=== PATIENT | female | born 1995 | race Hispanic/Latino ===

== ENCOUNTER 2020-07-11 10:26 | Emergency (ER) | payer SELFPAY ==
--- NOTE | 2020-07-11 10:28 | ED.PDOC ---
History of Present Illness - General Time Seen by Provider: 07/11/20 10:28 - History of Present Illness Initial Comments: 25 yo otherwise healthy female comes in with left sided flank pain. Pain started yesterday, has been constant. States she has had similar pain on the Right flank before, but unsure what it was. Denies fever, dysuria, hematuria. Has tried tylenol for pain. On menstrual cycle currently. Pain radiates to left abdomen and suprapubic area. she is not Allergies/Adverse Reactions: Allergies NO KNOWN ALLERGY Allergy (Verified 07/11/20 10:52) Home Medications: Ambulatory Orders Acetaminophen W/ Codeine [Tylenol W/ CODEINE #3] 1 ea PO Q8HRS PRN #10 ea 07/11/20 Ibuprofen 600 mg PO QID PRN #30 tab 07/11/20 Ondansetron HCl [Zofran] 4 mg PO TID PRN #15 tab 07/11/20 Tamsulosin HCl [Flomax] 0.4 mg PO DAILY 14 Days #14 cap 07/11/20 Review of Systems - Review of Systems Constitutional: Denies: chills, fever Respiratory: Denies: cough, short of breath Cardiology: Denies: chest pain, palpitations Gastrointestinal/Abdominal: States: abdominal pain, nausea, vomiting. Denies: constipation, diarrhea Genitourinary: Denies: discharge, dysuria, frequency, hematuria Musculoskeletal: States: back pain Neurological: Denies: anxiety, depressed Hematologic/Lymphatic: Denies: anemia, blood clots, easy bleeding Past Medical History (General) - Patient Medical History Hx Diabetes: No Hx Renal Disease: No - Social History Hx Substance Use: No - Female History Hx Last Menstrual Period: 03/08/13 Expected Date of Delivery:: 12/09/13 Family Medical History - Family History Mother Living Status: Still Living Physical Exam - Physical Exam General Appearance: Alert, Comfortable, No apparent distress Eye Exam: bilateral normal Ears, Nose, Throat: normal ENT inspection, normal pharynx Neck: non-tender, full range of motion, supple, normal inspection Respiratory: chest non-tender, lungs clear, normal breath sounds, no respiratory distress, no accessory muscle use Cardiovascular/Chest: normal peripheral pulses, regular rate, rhythm, no edema, no gallop, no JVD, no murmur Peripheral Pulses: radial,right: 2+, radial,left: 2+ Gastrointestinal/Abdominal: normal bowel sounds, soft, no organomegaly, other - no rebound or gaurding. mild suprapubic tenderness, + left flank pain. Back Exam: normal inspection, CVA tenderness (L) Extremity: normal range of motion, non-tender, normal inspection, no pedal edema, no calf tenderness Neurologic: extract puller II-XII nml as tested, no motor/sensory deficits, alert, normal mood/affect, oriented x 3 Skin Exam: normal color, warm/dry Progress - Progress Progress: 07/11/20 10:45 Plan to give IVF, zofran, toradol pending test. CBC/CMP/lipase as well as UA. CT scan abdomen/pelvis to rule out stone. Partial Ddx: pancreatitis, pyelonephritis, uti, gastroenteritis, kidney/ureter stone. 07/11/20 10:41 Sodium Chloride 0.9% 1000ML [Ns 1000 ml] 1,000 ml IVS STAT 07/11/20 11:24 Abdoment/Pelvis w/o Contrast [CT] Stat Laboratory Results WBC 4.9 K/mm3 (4.8-10.8) 07/11/20 10:45 RBC 4.27 M/mm3 (4.20-5.40) 07/11/20 10:45 Hgb 13.9 gm/dL (12.0-16.0) 07/11/20 10:45 Hct 39.4 % (36.0-47.0) 07/11/20 10:45 MCV 92.4 fl (81.0-99.0) 07/11/20 10:45 MCH 32.5 pg (27.0-31.0) H 07/11/20 10:45 MCHC 35.2 g/dL (33.0-37.0) 07/11/20 10:45 RDW 12.8 % (11.5-14.5) 07/11/20 10:45 Plt Count 192 K/mm3 (130-400) 07/11/20 10:45 MPV 9.7 fl (7.40-10.4) 07/11/20 10:45 Absolute Neuts (auto) 3.10 K/uL (1.8-6.8) 07/11/20 10:45 Absolute Lymphs (auto) 1.40 K/uL (1.0-3.4) 07/11/20 10:45 Absolute Monos (auto) 0.40 K/uL (0.2-0.8) 07/11/20 10:45 Absolute Eos (auto) 0.10 K/uL (0.0-0.4) 07/11/20 10:45 Absolute Basos (auto) 0.00 K/uL (0.0-0.1) 07/11/20 10:45 Neutrophils % 62.8 % (42.0-78.0) 07/11/20 10:45 Lymphocytes % 27.7 % (20.0-50.0) 07/11/20 10:45 Monocytes % 7.6 % (2.0-9.0) 07/11/20 10:45 Eosinophils % 1.5 % (1.0-5.0) 07/11/20 10:45 Basophils % 0.4 % (0.0-2.0) 07/11/20 10:45 Sodium 139 mmol/L (135-145) 07/11/20 10:45 Potassium 4.0 mmol/L (3.6-5.0) 07/11/20 10:45 Chloride 107 mmol/L (101-111) 07/11/20 10:45 Carbon Dioxide 23 mmol/L (21-31) 07/11/20 10:45 Anion Gap 13.0 (12-18) 07/11/20 10:45 BUN 15 mg/dL (7-18) 07/11/20 10:45 Creatinine 0.64 mg/dL (0.6-1.3) 07/11/20 10:45 BUN/Creatinine Ratio 23.4 (10-20) H 07/11/20 10:45 Random Glucose 123 mg/dL (70-105) H 07/11/20 10:45 Serum Osmolality 279.7 mOsm/L (275-295) 07/11/20 10:45 Calcium 9.5 mg/dL (8.4-10.2) 07/11/20 10:45 Total Bilirubin 0.6 mg/dL (0.2-1.0) 07/11/20 10:45 AST 19 IU/L (10-42) 07/11/20 10:45 ALT 18 IU/L (10-60) 07/11/20 10:45 Alkaline Phosphatase 68 IU/L (42-121) 07/11/20 10:45 Serum Total Protein 8.2 gm/dL (6.4-8.2) 07/11/20 10:45 Albumin 5.2 g/dl (3.2-5.5) 07/11/20 10:45 Globulin 3.0 gm/dL (2.3-3.5) 07/11/20 10:45 Albumin/Globulin Ratio 1.7 (1.1-1.9) 07/11/20 10:45 Lipase 34 U/L (22-51) 07/11/20 10:45 Urine Color Yellow (Yellow) 07/11/20 11:00 Urine Appearance Clear (Clear) 07/11/20 11:00 Urine pH 7.0 (4.5-7.8) 07/11/20 11:00 Ur Specific [place] 1.025 (1.005-1.030) 07/11/20 11:00 Urine Protein Negative mg/dL 07/11/20 11:00 Urine Glucose (UA) Negative mg/dL (Negative) 07/11/20 11:00 Urine Ketones Negative mg/dL (NEGATIVE) 07/11/20 11:00 Urine Blood Small (Negative) H 07/11/20 11:00 Urine Nitrite Negative 07/11/20 11:00 Urine Bilirubin Negative (NEGATIVE) 07/11/20 11:00 Urine Urobilinogen 1.0 mg/dL (0.2-1.0) 07/11/20 11:00 Ur Leukocyte Esterase Negative (Negative) 07/11/20 11:00 Urine RBC 5-10 /hpf H 07/11/20 11:00 Urine WBC 1-3 /hpf 07/11/20 11:00 Ur Epithelial Cells 1-3 /hpf 07/11/20 11:00 Amorphous Sediment 2+ 07/11/20 11:00 Urine Bacteria 1+ 07/11/20 11:00 Urine Mucus Large 07/11/20 11:00 Urine HCG, Qual Negative (NEGATIVE) 07/11/20 11:00 07/11/20 11:20 pain and nausea has resolved. CT shows 2 stones aprx 5 mm each stone at the UVJ with hydronephrosis. Also large stone in gallbladder. pending radiology read. The data reviewed when caring for this patient included: nurse notes. The history and assessments from nurses notes were reviewed and considered, and the patient's home medication list was also reviewed and considered. My assessment and the results of testing completed here in the ED were discussed with the patient/family. All questions were answered, and they express understanding of my assessment and the plan. They have been instructed to return if their symptoms worsen, and have been asked to follow up with their primary care physician to recheck today's presenting complaint. A urology appointment with Dr. Waterman has been made. Strict return precautions given. I have reviewed medication, benefits, alternatives and side effects. Patient decided to proceed with medication.Jessica Paul DO #[id number] Departure - Departure Clinical Impression: Urolithiasis Qualifiers: Urinary calculus location: other lower urinary tract location Qualified Code(s): N21.8 - Other lower urinary tract calculus Cholelithiasis Qualifiers: Cholelithiasis location: gallbladder Cholecystitis presence: without cholecystitis Biliary obstruction: without biliary obstruction Qualified Code(s): K80.20 - Calculus of gallbladder without cholecystitis without obstruction Time of Disposition: 12:11 Disposition: Discharge to Home or Self Care Instructions: Kidney Stones in Adults, Gallstones, Kidney Stone Diet Referrals: CECILY WATERMAN MD [Consulting Staff] - 07/17/20 2:00 am Prescriptions: Acetaminophen W/ Codeine [Tylenol W/ CODEINE #3] 1 ea PO Q8HRS PRN #10 ea PRN Reason: Pain Tamsulosin HCl [Flomax] 0.4 mg PO DAILY 14 Days #14 cap Ibuprofen 600 mg PO QID PRN #30 tab PRN Reason: Pain Ondansetron HCl [Zofran] 4 mg PO TID PRN #15 tab PRN Reason: Vomiting Home Medications: Ambulatory Orders Acetaminophen W/ Codeine [Tylenol W/ CODEINE #3] 1 ea PO Q8HRS PRN #10 ea 07/11/20 Ibuprofen 600 mg PO QID PRN #30 tab 07/11/20 Ondansetron HCl [Zofran] 4 mg PO TID PRN #15 tab 07/11/20 Tamsulosin HCl [Flomax] 0.4 mg PO DAILY 14 Days #14 cap 07/11/20
[2020-07-11 10:41] VITALS: TEMP 96.8
[2020-07-11] MEDS: SODIUM CHLORIDE 0.9% 1000ML 1,000 ML IVS PRN (10:49)
[2020-07-11] MEDS: ONDANSETRON INJ 4 MG/2 ML VIAL IV ONE (10:49)
[2020-07-11] MEDS: KETOROLAC TROMETHAMINE INJ 30 MG/ML VIAL IV ONE (11:29)
--- NOTE | 2020-07-11 12:02 | CT ---
EXAM DESCRIPTION: Abdomen and/Pelvis w/o Contrast CLINICAL HISTORY: 25 years Female, left flank pain COMPARISON: None. TECHNIQUE: CT of the abdomen and pelvis acquired without IV contrast material. Coronal and sagittal reformations provided. This exam was performed according to our departmental dose-optimization program, which includes automated exposure control, adjustment of the mA and/or kV according to patient size and/or use of iterative reconstruction technique. FINDINGS: Lung bases: Clear. Limited evaluation of the solid organs secondary to the lack of intravenous contrast. Solid Organs: Unremarkable noncontrast appearance of the liver, spleen, pancreas, adrenal glands, right kidney. There are 2 adjacent calcifications in the urinary bladder overlying the left ureter vesicular junction measuring up to 5 mm. This contributes to mild left hydronephroureter. No asymmetric enlargement or perinephric stranding. 16 mm stone within the gallbladder. No biliary duct dilatation. GI tract: Unremarkable stomach. No small bowel obstruction. Mild colonic stool. Normal appendix. Vascular: Normal. Musculoskeletal and soft tissues: No acute fracture or aggressive appearing osseous lesion. Tiny fat-containing umbilical hernia. Urinary bladder: Normal. Uterus and adnexa: Normal. Other: None. IMPRESSION: 1. 2 adjacent millimetric stones within the urinary bladder overlying the left uterovesical junction contributing to mild left hydronephroureter. 2. Cholelithiasis. Electronically signed by: Cruz Rodrigues MD 07/11/2020 12:00 PM CDT
[2020-07-11 12:12] VITALS: O2SAT 99
[2020-07-11 12:34] VITALS: BP 107/84
== END 2020-07-11 12:25 | disposition home or self-care (01) ==
LOC: ER 10:26
DX: K80.20 Calculus of gallbladder without cholecystitis without obstruction (principal); N13.2 Hydronephrosis with renal and ureteral calculous obstruction
CPT/HCPCS: 36415; 74176; 80053; 81001; 81025; 83690; 85025; J1885; J2405; J7030

== ENCOUNTER → 2020-08-14 | Outpatient (CLI) | payer BC ==
--- NOTE | 2020-08-15 14:49 | RAD ---
EXAM DESCRIPTION: Abdomen 1 View CLINICAL HISTORY: 25 years Female, CALCULUS OF KIDNEY COMPARISON: None. TECHNIQUE: Single view radiograph of the abdomen. IMPRESSION: Clear lung bases. Nondilated bowel gas pattern. Subcentimeter consultation with an overall measurement of 8 mm the left hemipelvis probably representing known stones in the urinary bladder which previously overlie the left uterovesical junction. Unremarkable included osseous structures. Electronically signed by: Cruz Rodrigues MD 08/15/2020 2:47 PM CDT
== END ==
LOC: RAD 13:46
PROVIDERS: ATTEND Urology
DX: N20.0 Calculus of kidney (principal)

== ENCOUNTER → 2020-10-01 | Outpatient (CLI) | payer BC ==
--- NOTE | 2020-10-02 13:02 | RAD ---
EXAM DESCRIPTION: IVP Intravenous Pyelogram CLINICAL HISTORY: 25 years Female, calculus of ureter COMPARISON: CT scan of abdomen and pelvis July 11, 2020. TECHNIQUE: The exam was supervised by Dr. Flores. Supine AP sales audit clerk image of the abdomen. Nonionic IV contrast injected followed by immediate AP kidneys. Five minute Supine AP abdomen and pelvis. 10 minute Bilateral supine oblique AP abdomen and pelvis. 10 minute AP pelvis. 15 minute AP prone abdomen and pelvis. 20 minute postvoid AP supine pelvis. No adverse reactions. FINDINGS: On the preliminary sales audit clerk film of the abdomen and pelvis. No radiodense objects overlying the urinary tracts or kidneys. No radiodense objects in the pelvis. Limited visualization of the kidneys due to fecal matter over the kidneys from the colon. Trace amount of lower lumbar levoscoliosis. On the immediate image, bilateral kidneys are enhancing well with normal-appearing nephrograms and symmetric size. On the 5 minute image, bilateral renal collecting systems and proximal two thirds of the ureters are minimally prominent but no definite hydroureter or hydronephrosis. No radiodense stones overlying the urinary tracts. No anomalies in the renal collecting systems or mass effect bilaterally. No mass effect on the ureters. On the 10 minute supine AP image and bilateral oblique images, less dilation of the renal collecting systems and ureters with no obstruction. On the 15 minute prone image, collecting systems of the kidneys and ureters was demonstrated. Urinary bladder is well-distended. On the 20 minute supine AP postvoid pelvis view, minimal residual urine in the base of the urinary bladder. No radiodense stones are visualized. IMPRESSION: 1. No radiodense stones seen in the urinary tracts on preliminary sales audit clerk film or on the excretory urogram examination. 2. Bilateral collecting systems and ureters were minimally dilated on the initial postcontrast images but no definitive hydroureter or hydronephrosis. No mass effect on the ureters or renal collecting systems. No renal collecting system anomalies seen. 3. Urinary bladder well distended with no extrinsic mass effect or gross intrinsic mass. Electronically signed by: Maninder Flores MD 10/02/2020 1:00 PM REIMBURSEMENT LIAISON
== END ==
LOC: RAD 10:10
PROVIDERS: ATTEND Urology
DX: Z01.818 Encounter for other preprocedural examination (principal); N28.9 Disorder of kidney and ureter, unspecified; Z87.442 Personal history of urinary calculi; Z98.890 Other specified postprocedural states